=== PATIENT | female | born 1950 | race Caucasian/White ===

== ENCOUNTER → 2017-11-21 | Outpatient (CLI) | payer MEDICARE, OTHER ==
[~2017-11-21] MED LIST: AMBIEN 10 MG TA10 MG PO; BACTRIM 400-801 EACH; CELEXA40 MG PO; CENTRUM SILVER1 EAC1 PO; CIPRO500 MG PO; CLONAZEPAM 1 MG1 M1 PO; CRESTOR10 MG PO; CRESTOR20 MG PO; CYMBALTA30 MG PO; Calcium Carbonate PO; D3 DOTS2000 UNIT PO; ESTRACE0.5 MG PO; FENTANYL PATCH75 MCG TOP; FLAGYL500 MG PO; GLYCOLAX POWDER17 G1 PO; HYDROCODON-ACE1 EAC7 PO; IBUPROFEN 800800 M1 PO; LEVAQUIN 500 M500 MG PO; LINZESS72 MCG PO; LISINOPRIL10 MG PO; LISINOPRIL20 MG PO; LYRICA 75 MG CA75 MG PO; NORVASC10 MG PO; OMEPRAZOLE40 MG PO; ONDANSETRON HCL4 M2 PO; OS-CAL 500+D31 EAC1 PO; PERCOCET 7.5-31 EACH PO; PROLIA60 MG/1 ML IM; PROVENTIL HFA6.7 G1 INH; RANITIDINE HCL300 M1 PO; SEROQUEL 25 MG25 M1; SIMVASTATIN40 MG; SYNTHROID100 MCG PO; UNICOMPLEX M TA1 TA1 PO; VICODIN ES 7.51 EACH PO; ZANTAC 150MG T150 MG PO
== END ==
LOC: M.RAD 11-05 16:58 → M.CT 11-13 15:30 → M.RAD 11-13 15:30
DX: Z12.31 Encounter for screening mammogram for malignant neoplasm of breast (principal); J42 Unspecified chronic bronchitis; N28.1 Cyst of kidney, acquired; R91.8 Other nonspecific abnormal finding of lung field; I10 Essential (primary) hypertension; M81.0 Age-related osteoporosis without current pathological fracture; Z87.891 Personal history of nicotine dependence; Z88.9 Allergy status to unspecified drugs, medicaments and biological substances

== ENCOUNTER 2018-09-14 02:58 | Inpatient (IN) | payer MEDICARE, OTHER ==
[~2018-09-14] VITALS: Ht 165.1 cm; Wt 79.9 kg
[2018-09-14 03:11] VITALS: BP 95/56
[2018-09-14] MEDS ORDERED: CELEXA20 MG PO (03:27)
[2018-09-14 03:37] LABS: ABSOLUTE BASOPHILS 0.1 thou/uL (0.0-0.2); ABSOLUTE EOSINOPHILS 0.2 thou/uL (0.0-0.7); ABSOLUTE LYMPHOCYTES 2.1 thou/uL (0.8-5.3); ABSOLUTE MONOCYTES 0.6 thou/uL (0.0-1.2); ABSOLUTE NEUTROPHILS 6.4 thou/uL (1.6-8.1); BASOPHILS 0.6 %; EOSINOPHILS 2.4 %; HEMATOCRIT 36.8 % (37.0-47.0); HEMOGLOBIN 12.3 gm/dL (12.0-15.0); MCH 26.8 pg (26.0-34.0); MCHC 33.6 g/dL (28.0-37.0); MCV 79.9 fL (80.0-100.0); MONOCYTES 6.7 %; MPV 7.6 fl. (7.2-11.1); NUCLEATED RBCS 0 /100WBC; PLATELET COUNT* 361 thou/uL (150-400); POLYS 68.3 %; RDW-CV 16.9 % (10.5-14.5); WBC 9.4 thou/uL (4.0-11.0)
[2018-09-14 03:46] LABS: CALCIUM 8.6 mg/dL (8.5-10.1); CREATININE 1.5 mg/dL (0.6-1.3); POTASSIUM 3.4 mmol/L (3.5-5.1)
[2018-09-14 03:51] LABS: ALBUMIN 3.1 g/dL (3.4-5.0); TOTAL BILIRUBIN 0.6 mg/dL (<0.1-1.0); TOTAL PROTEIN 6.7 g/dL (6.4-8.2)
[2018-09-14 05:29] LABS: BE -0.9 mmol/L (-2 to +3); PCO2 47.4 mmHg (35.0-45.0); pH 7.343 (7.340-7.450)
[2018-09-14 06:01] LABS: URINE BILIRUBIN NEGATIVE (Negative); URINE BLOOD NEGATIVE (Negative); URINE CLARITY CLEAR; URINE COLOR YELLOW; URINE GLUCOSE-RANDOM NEGATIVE (Negative); URINE KETONES NEGATIVE (Negative); URINE LEUKOCYTES-REFLEX NEGATIVE (Negative); URINE NITRITE-REFLEX NEGATIVE (Negative); URINE PROTEIN NEGATIVE (Negative); URINE UROBILINOGEN 0.2 E.U./dl (0.2-1.0)
[2018-09-14 10:00] VITALS: BP 90/53
[2018-09-14 12:00] VITALS: BP 88/57
--- NOTE | 2018-09-14 12:47 | EKG ---
[place] [address] ELECTROCARDIOGRAM REPORT Name: DEEMTRIS CH Room: [place] [address] ADM IN M.R.#: [id number] Admission: 09/14/18 Attend Phys: Koko Valdovinos Discharge: Date of : 50 Report #: [id number] THIS REPORT FOR: //name// 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: AYLEEN : 1950 Requested By: Mercedes Luu Order Number: [id number] Collins MD: Ezekiel Benitez Measurements Intervals [place] Rate: 109 P: 51 MD: 125 QRS: 56 QRSD: 111 T: 14 QT: 363 QTc: 489 Interpretive Statements Sinus tachycardia Low voltage, precordial leads Borderline T abnormalities, inferior leads Artifact in lead(s) III,aVL,aVF,V1,V2,V3,V4,V5,V6 and baseline wander in lead(s) V3 Compared to ECG 03/16/2017 16:41:48 T-wave abnormality now present Electronically Signed On 09-14-2018 12:47:40 CDT by Ezekiel Benitez [email or web address] <ELECTRONICALLY SIGNED> By: Ezekiel Benitez MD, [facility] 09/14/18 1247 1 034 Ezekiel Benitez MD, [facility] /EPI
--- NOTE | 2018-09-14 12:48 | EKG ---
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 : 1950 Requested By: Mercedes Luu Order Number: [id number] Collins MD: Ezekiel Benitez Measurements Intervals [place] Rate: 133 P: 13 [place]: 134 QRS: 7 QRSD: 163 T: -5 QT: 336 QTc: 500 Interpretive Statements Sinus tachycardia Probable left atrial enlargement Nonspecific intraventricular conduction delay Artifact in lead(s) III,aVL,aVF,V1,V2,V3,V4,V5,V6 Compared to ECG 03/16/2017 16:41:48 Intraventricular conduction delay now present Electronically Signed On 09-14-2018 12:48:04 CDT by Ezekiel Benitez [email or web address] <ELECTRONICALLY SIGNED> By: Ezekiel Benitez MD, FAC 09/14/18 1248 0344 0344 Ezekiel Benitez MD, FAC /EPI
--- NOTE | 2018-09-14 12:48 | EKG ---
[place] [address] ELECTROCARDIOGRAM REPORT Name: DIMADEMETRIS Room: [place] [address] ADM IN .R.#: [id number] Admission: 09/14/18 Attend Phys: Koko Valdovinos Discharge: Date of : 50 Report #: [id number] THIS REPORT FOR: //name// [facility] ED Test Date: 2018-09-14 Test Time: 04:09:29 Pat Name: DEMETRIS CH Department: Room: [facility] Gender: F Otolaryngology Nurse: AYLEEN : 1950 Requested By: Mercedes Luu Order Number: [id number] MD: Ezekiel Benitez Measurements Intervals [place] Rate: 106 P: 56 [place]: 137 QRS: 51 QRSD: 98 T: 18 QT: 357 QTc: 475 Interpretive Statements Sinus tachycardia Low voltage, precordial leads Compared to ECG 03/16/2017 16:41:48 No significant changes Electronically Signed On 09-14-2018 12:48:12 CDT by Ezekiel Benitez [email or web address] <ELECTRONICALLY SIGNED> By: Ezekiel Benitez MD, [facility] 09/14/18 1248 0409 0409 Ezekiel Benitez MD, [facility] /EPI
[2018-09-14 14:04] LABS: BE 2.5 mmol/L (-2 to +3); PCO2 49.1 mmHg (35.0-45.0); PO2 73.7 mmHg (75.0-100.0); pH 7.378 (7.340-7.450)
[2018-09-14 14:40] VITALS: BP 92/58
[2018-09-14 15:00] VITALS: BP 99/55
[2018-09-14 20:00] VITALS: BP 99/61
[2018-09-14] MEDS ORDERED: AMBIEN 5 MG TABL5 M1 PO (20:21)
[2018-09-15] VITALS: BP 97/54
[2018-09-15 04:00] VITALS: BP 99/54
[2018-09-15 05:11] LABS: PO2 110.8 mmHg (75.0-100.0); pH 7.402 (7.340-7.450)
[2018-09-15 05:16] LABS: PCO2 50.4 mmHg (35.0-45.0)
[2018-09-15 05:40] LABS: CALCIUM 8.6 mg/dL (8.5-10.1); CREATININE 0.9 mg/dL (0.6-1.3)
[2018-09-15 05:43] LABS: ABSOLUTE LYMPHOCYTES 1.5 thou/uL (0.8-5.3); ABSOLUTE MONOCYTES 0.6 thou/uL (0.0-1.2); ABSOLUTE NEUTROPHILS 10.3 thou/uL (1.6-8.1); BASOPHILS 0.1 %; HEMATOCRIT 31.9 % (37.0-47.0); HEMOGLOBIN 10.4 gm/dL (12.0-15.0); LYMPHOCYTES 12.2 %; MCH 25.8 pg (26.0-34.0); MCHC 32.5 g/dL (28.0-37.0); MCV 79.3 fL (80.0-100.0); MONOCYTES 4.5 %; MPV 8.6 fl. (7.2-11.1); NUCLEATED RBCS 0 /100WBC; PLATELET COUNT* 303 thou/uL (150-400); POLYS 83.2 %; RBC 4.02 mil/uL (4.20-5.00); RDW-CV 16.5 % (10.5-14.5); WBC 12.4 thou/uL (4.0-11.0)
[2018-09-15 08:00] VITALS: BP 107/73
[2018-09-15 12:16] VITALS: BP 86/46
[2018-09-15 16:00] VITALS: BP 85/48
[2018-09-15 20:00] VITALS: BP 96/53
[2018-09-16] VITALS: BP 97/56
[2018-09-16 04:00] VITALS: BP 96/56
[2018-09-16 05:38] LABS: CALCIUM 8.7 mg/dL (8.5-10.1); POTASSIUM 4.2 mmol/L (3.5-5.1)
[2018-09-16 05:40] LABS: ABSOLUTE EOSINOPHILS 0.3 thou/uL (0.0-0.7); ABSOLUTE LYMPHOCYTES 3.1 thou/uL (0.8-5.3); ABSOLUTE MONOCYTES 0.9 thou/uL (0.0-1.2); ABSOLUTE NEUTROPHILS 6.6 thou/uL (1.6-8.1); BASOPHILS 0.2 %; EOSINOPHILS 2.9 %; HEMATOCRIT 30.7 % (37.0-47.0); HEMOGLOBIN 10.3 gm/dL (12.0-15.0); LYMPHOCYTES 28.1 %; MCH 26.9 pg (26.0-34.0); MCHC 33.6 g/dL (28.0-37.0); MCV 80.2 fL (80.0-100.0); MPV 8.3 fl. (7.2-11.1); NUCLEATED RBCS 0 /100WBC; PLATELET COUNT* 305 thou/uL (150-400); POLYS 60.8 %; RBC 3.83 mil/uL (4.20-5.00); RDW-CV 17.1 % (10.5-14.5); WBC 10.9 thou/uL (4.0-11.0)
[2018-09-16 08:00] VITALS: BP 89/52
[2018-09-16 11:48] VITALS: BP 89/54
[2018-09-16 16:10] VITALS: BP 102/54
[2018-09-16 18:45] LABS: HEMATOCRIT 37.8 % (37.0-47.0); HEMOGLOBIN 12.1 gm/dL (12.0-15.0); MCH 26.1 pg (26.0-34.0); MCV 81.8 fL (80.0-100.0); MPV 8.2 fl. (7.2-11.1); RBC 4.62 mil/uL (4.20-5.00); RDW-CV 17.3 % (10.5-14.5); WBC 11.7 thou/uL (4.0-11.0)
[2018-09-16 18:58] LABS: INR 0.9; PROTIME 9.6 Seconds (9.20-11.50)
[2018-09-16 20:00] VITALS: BP 104/62
[2018-09-17] VITALS (8 sets, daily range): BP systolic 93–126; BP diastolic 55–70
[2018-09-18] VITALS: BP 113/65
[2018-09-18 04:00] VITALS: BP 115/69
[2018-09-18 08:05] VITALS: BP 109/55
[2018-09-18 14:22] VITALS: BP 109/55
[2018-09-18 15:32] VITALS: BP 88/55
--- NOTE | 2018-09-18 17:13 | 2DMMODE ---
[place] [address] 2 D/M-MODE ECHOCARDIOGRAM Name: ZEYNEP CHRAJNI CABEZAS Room: [address] ADM IN [facility]#: [id number] Admission: 09/14/18 Attend Phys: Nasreen Bradshaw Discharge: Date of : 50 Date of Service: 09/18/18 1713 Report #: [id number] THIS REPORT FOR: //name// APPROVED REPORT Study performed: 09/18/2018 16:00:27 EXAM: Comprehensive 2D, Doppler, and color-flow Echocardiogram Patient Location: In-Patient Room #: [facility] Status: routine BSA: 1.87 HR: 91 bpm BP: 88/55 mmHg Rhythm: NSR Other Information Study Quality: Good Indications hypoxia 2D Dimensions IVSd: 7.46 (7-11mm) LVOT Diam: 19.14 (18-24mm) LVDd: 40.05 mm PWd: 8.31 (7-11mm) Ascending Ao: 31.02 (22-36mm) LVDs: 16.25 (25-40mm) Aortic Root: 33.16 mm Volumes Left Atrial Volume (Systole) LA ESV Index: 15.30 mL/m2 Aortic Valve AoV Peak Partha.: 1.09 m/s AO Peak Gr.: 4.73 mmHg LVOT Max P.67 mmHg AO Mean Gr.: 2.69 mmHg LVOT Mean P.75 mmHg LVOT Max V: 0.96 m/s AO V2 VTI: 22.35 cm LVOT Mean V: 0.61 m/s GAURI (VTI): 2.21 cm2 LVOT V1 VTI: 17.15 cm Mitral Valve E/A Ratio: 1.04 MV Decel. Time: 232.06 ms MV E Max Partha.: 0.79 m/[place] [address] 2 D/M-MODE ECHOCARDIOGRAM Name: DEMETRIS CH Room: [address] IN [facility]#: [id number] Admission: 09/14/18 Attend Phys: Nasreen Bradshaw Discharge: Date of : 50 Date of Service: 09/18/18 1713 Report #: [id number] MV PHT: 67.30 ms MVA (PHT): 3.27 cm2 TDI E/Lateral E': 6.08 E/Medial E': 7.90 Medial E' Partha.: 0.10 m/s Lateral E' Partha.: 0.13 m/s Pulmonary Valve PV Peak Partha.: 0.85 m/s PV Peak Gr.: 2.87 mmHg Tricuspid Valve RAP Estimate: 5.00 mmHg TR Peak Gr.: 26.86 mmHg RVSP: 31.00 mmHg PA Pressure: 31.00 mmHg Left Ventricle The left ventricle is normal size. There is normal LV segmental wall motion. There is normal left ventricular wall thickness. Left ventricular systolic function is normal. LVEF is 60-65%. Transmitral Doppler flow pattern suggests impaired LV relaxation. Right Ventricle The right ventricle is normal size. The right ventricular systolic function is normal. Atria The left atrium size is normal. The right atrium size is normal. Aortic Valve The aortic valve is normal in structure. No aortic regurgitation is present. There is no aortic valvular stenosis. Mitral Valve The mitral valve is normal in structure. There is no mitral valve regurgitation noted. No evidence of mitral valve stenosis. Tricuspid Valve The tricuspid valve is normal in structure. No pulmonary hypertension. Trace tricuspid regurgitation. Pulmonic Valve The pulmonary valve is normal in structure. There is no pulmonic [place] [address] 2 D/M-MODE ECHOCARDIOGRAM Name: DEMETRIS CH JOCELYNN Room: [address] IN [facility]#: [id number] Admission: 09/14/18 Attend Phys: Nasreen Bradshaw Discharge: Date of : 50 Date of Service: 09/18/18 1713 Report #: [id number] Great Vessels The aortic root is normal in size. IVC is normal in size and collapses >50% with inspiration. Pericardium There is no pericardial effusion. <Conclusion> The left ventricle is normal size. There is normal left ventricular wall thickness. Left ventricular systolic function is normal. LVEF is 60-65%. Transmitral Doppler flow pattern suggests impaired LV relaxation. The tricuspid valve is normal in structure. No pulmonary hypertension. IVC is normal in size and collapses >50% with inspiration. <ELECTRONICALLY SIGNED> By: Jerman Christensen MD, FACC 09/18/18 171 12 171 Jerman Christensen MD, FACC /INF
[2018-09-18 21:00] VITALS: BP 98/63
[2018-09-19 00:19] VITALS: BP 96/61
[2018-09-19 04:00] VITALS: BP 95/60
[2018-09-19 07:40] VITALS: BP 97/54
[2018-09-19 17:10] VITALS: BP 81/50
[2018-09-19 20:00] VITALS: BP 90/55
[2018-09-20] VITALS: BP 112/51
[2018-09-20 04:00] VITALS: BP 90/53
[2018-09-20 07:30] VITALS: BP 110/70
[2018-09-20 16:42] VITALS: BP 97/55
[2018-09-20 20:00] VITALS: BP 97/63
[2018-09-21 09:40] VITALS: BP 104/59
--- NOTE | 2018-09-21 10:49 | CON ---
[address] [address] CONSULTATION Name: DIMADEMETRIS Room: [address] ADM IN M.R.#: [id number] Admission: 09/14/18 Attend Phys: Koko Valdovinos Discharge: Date of : 50 Report #: [id number] THIS REPORT FOR: //name// CC: Nasreen Burns DATE OF SERVICE: 09/20/2018 NEW PATIENT EVALUATION REASON FOR EVALUATION: Hypoxemia. COPD. HISTORY OF PRESENT ILLNESS: The patient is a 68-year-old old woman who was admitted on 09/14/2018 complaining of a fall on 09/13/2018. She fell backwards, landing on her lower back. She denies loss of consciousness or altered mental status. However, she had back pain and chest pain in the rib area and associated traumatic rib fractures and compression fracture in T4. She had initially chest CT done on 09/14/2018, which showed emphysematous changes, coronary artery calcification and hiatal hernia. The patient, at baseline, has COPD. She is using albuterol as needed. She denies wheezing or cough; however, has shortness of breath on exertion. Workup included V/Q scan, which was done on 09/14/2018, was low probability. Venous Dopplers were clear. She had a chest CT on 09/18/2018, which I personally reviewed. It showed diffuse emphysema. She has left upper lobe patchy infiltrate, suspected scarring. Also, she has minimal effusion with small right lower lobe infiltrate versus atelectasis. PAST MEDICAL HISTORY: Including COPD per history, rib fracture. Back pain and compression fracture of T9 in the past. Hyperlipidemia, neuropathy, arthritis, depression and osteoporosis. ALLERGIES: NOTED. PAST SURGICAL HISTORY: Surgical hysterectomy, tonsillectomy and adenoidectomy. HOME MEDICATIONS: Reviewed. FAMILY HISTORY: Noncontributory. SOCIAL HISTORY: Continues to smoke, has 79-pyrs-psmg smoking. REVIEW OF SYSTEMS: A 14-point review of systems as above. [place] [address] CONSULTATION Name: DIMADEMETRIS Room: [address] IN [facility]#: [id number] Admission: 09/14/18 Attend Phys: Koko Valdovinos Discharge: Date of : 50 Report #: [id number] joint pain, has exertional shortness of breath, has neuropathy. Recent fall. PHYSICAL EXAMINATION: GENERAL: On examination, the patient not in distress. VITAL SIGNS: Pulse is 90, blood pressure 110/70, pulse oximetry was 94% on 4 liters. She is afebrile at 36.4. HEAD AND NECK: Neck is supple. Oral mucosa clear. CHEST: Diffusely decreased breath sounds. She has some kyphosis. CARDIOVASCULAR: Regular rate and rhythm. ABDOMEN: Soft, nontender. EXTREMITIES: No edema. NEUROLOGIC: No focal deficits. PSYCHIATRIC: Anxious. LABORATORY AND OTHER DATABASE: White blood cell count 11.7, hemoglobin 12 and platelets 375,000. Arterial blood gas from 09/15/2018, pH of 7.4, pCO2 of 50 and pO2 110. ASSESSMENT AND PLAN: 1. Acute respiratory failure, the patient post fall. She has rib fracture. She has associated atelectasis. At this time, recommend to continue incentive spirometry, which she continues to do. I suspect that her COPD is severe and likely may need home O2. Hypoxemia worse with atelectasis, cannot exclude pneumonia. We will recommend to treat her with Levaquin course. 2. Chronic obstructive pulmonary disease. Extensive emphysema on chest CT reviewed and she has chronic hypercapnia. Suspect her COPD is severe. We will need pulmonary function test. Recommend to add long-acting anticholinergic, similar to Spiriva and Incruse, as outpatient and recommend to follow up with Pulmonary, which the patient agrees with it. She needs to quit smoking too. 3. Chronic hypercapnia, has been stable, likely related to chronic obstructive pulmonary disease. As above, recommend follow up with Pulmonary. We will continue to follow up intermittently. This was discussed with the patient. Please do not hesitate to call with any questions. <ELECTRONICALLY SIGNED> By: Geovanni Watson MD 09/21/18 1049 1109 0105Ajoaquín Watson MD /nt
[2018-09-21 16:00] VITALS: BP 101/58
[2018-09-21 20:00] VITALS: BP 117/82
[2018-09-22 04:24] LABS: HEMATOCRIT 32.2 % (37.0-47.0); HEMOGLOBIN 10.7 gm/dL (12.0-15.0); MCH 26.7 pg (26.0-34.0); MCHC 33.2 g/dL (28.0-37.0); MCV 80.4 fL (80.0-100.0); MPV 7.7 fl. (7.2-11.1); RBC 4.01 mil/uL (4.20-5.00); RDW-CV 17.2 % (10.5-14.5); WBC 7.8 thou/uL (4.0-11.0)
[2018-09-22 04:41] LABS: CREATININE 1.2 mg/dL (0.6-1.3); POTASSIUM 4.8 mmol/L (3.5-5.1)
[2018-09-22 08:30] VITALS: BP 106/67
[2018-09-22 08:44] VITALS: BP 106/67
[2018-09-22] MEDS ORDERED: IPRAT-ALBUT 0.5-3 ML INH (11:29)
[2018-09-22] MEDS ORDERED: PULMICORT0.5 MG/22 INH (11:30)
[2018-09-22] MEDS ORDERED: PERCOCET 7.5-31 EACH PO (11:31)
[2018-09-22] MEDS ORDERED: LEVAQUIN 500 M500 M2 PO (11:33)
== END 2018-09-22 13:00 | disposition home or self-care (01) | DRG 515 ==
LOC: M.ERS 02:58 → M.2W 05:43 → M.TBA-ER 05:43 → M.2W 14:42 → M.ORTHSURG 09-17 18:15
PROVIDERS: Emergency Medicine; Family Medicine; Internal Medicine; ADMIT Internal Medicine
PROC: 0PU43JZ Supplement Thoracic Vertebra with Synthetic Substitute, Percutaneous Approach (ICD-10-PCS; principal; 2018-09-22)
DX: S22.079A Unspecified fracture of T9-T10 vertebra, initial encounter for closed fracture (principal); J96.01 Acute respiratory failure with hypoxia; J96.02 Acute respiratory failure with hypercapnia; S22.31XA Fracture of one rib, right side, initial encounter for closed fracture; N17.9 Acute kidney failure, unspecified; E44.1 Mild protein-calorie malnutrition; E87.1 Hypo-osmolality and hyponatremia; J98.11 Atelectasis; J43.2 Centrilobular emphysema; I25.10 Atherosclerotic heart disease of native coronary artery without angina pectoris; K44.9 Diaphragmatic hernia without obstruction or gangrene; I10 Essential (primary) hypertension; F32.9 Major depressive disorder, single episode, unspecified; M19.90 Unspecified osteoarthritis, unspecified site; G62.9 Polyneuropathy, unspecified; E78.00 Pure hypercholesterolemia, unspecified; M81.0 Age-related osteoporosis without current pathological fracture; F17.210 Nicotine dependence, cigarettes, uncomplicated; W18.39XA Other fall on same level, initial encounter; Y93.89 Activity, other specified; Y92.090 Kitchen in other non-institutional residence as the place of occurrence of the external cause; Y99.8 Other external cause status; Z90.710 Acquired absence of both cervix and uterus; Z85.3 Personal history of malignant neoplasm of breast; Z92.21 Personal history of antineoplastic chemotherapy; Z92.3 Personal history of irradiation; Z79.899 Other long term (current) drug therapy; Z88.1 Allergy status to other antibiotic agents; Z88.8 Allergy status to other drugs, medicaments and biological substances

== ENCOUNTER 2019-02-04 20:46 | Emergency (ER) | payer MEDICARE, OTHER ==
[~2019-02-04] VITALS: Ht 165.1 cm; Wt 62.1 kg
[~2019-02-04 20:46] MED LIST changes: +AMBIEN 5 MG TABL5 M1 PO; +CELEXA20 MG PO; +IPRAT-ALBUT 0.5-3 ML INH; +LEVAQUIN 500 M500 M2 PO; +PULMICORT0.5 MG/22 INH
[2019-02-04 22:11] VITALS: BP 122/74
== END 2019-02-04 22:12 | disposition home or self-care (01) ==
LOC: M.ERS 20:46
DX: S01.81XA Laceration without foreign body of other part of head, initial encounter (principal); I10 Essential (primary) hypertension; F32.9 Major depressive disorder, single episode, unspecified; M81.0 Age-related osteoporosis without current pathological fracture; M19.90 Unspecified osteoarthritis, unspecified site; E78.00 Pure hypercholesterolemia, unspecified; F17.210 Nicotine dependence, cigarettes, uncomplicated; Z88.8 Allergy status to other drugs, medicaments and biological substances; Z90.89 Acquired absence of other organs; Z90.710 Acquired absence of both cervix and uterus; W01.198A Fall on same level from slipping, tripping and stumbling with subsequent striking against other object, initial encounter; Y92.89 Other specified places as the place of occurrence of the external cause; Y93.89 Activity, other specified; Y99.8 Other external cause status

== ENCOUNTER 2019-03-26 17:11 | Inpatient (IN) | payer MEDICARE, OTHER ==
[~2019-03-26] VITALS: Ht 162.6 cm; Wt 68.5 kg
--- NOTE | ~2019-03-26 | PROC ---
[address] [place] [address] PROCEDURE REPORT Name: DEMETRIS CH Room: [address] IN M.R.#: [id number] Admission: 03/26/19 Attend Phys: Chinyere Camacho Discharge: 03/30/19 Date of : 50 Report #: [id number] THIS REPORT FOR: //name// For GI report, please see the Provation report in Perceptive 7 content. By: 0646Medical Records Staff ZARA /FLORI
[2019-03-26 17:12] VITALS: BP 97/54
[2019-03-26 17:42] LABS: HEMOGLOBIN 11.3 gm/dL (12.0-15.0)
[2019-03-26 17:43] LABS: HEMATOCRIT 34.2 % (37.0-47.0); MCH 26.7 pg (26.0-34.0); MCHC 33.2 g/dL (28.0-37.0); MCV 80.4 fL (80.0-100.0); MPV 7.6 fl. (7.2-11.1); NUCLEATED RBCS 0 /100WBC; PLATELET COUNT* 400 thou/uL (150-400); RBC 4.25 mil/uL (4.20-5.00); RDW-CV 17.2 % (10.5-14.5); WBC 16.3 thou/uL (4.0-11.0)
[2019-03-26 17:54] LABS: CALCIUM 8.3 mg/dL (8.5-10.1); CREATININE 1.5 mg/dL (0.6-1.3); POTASSIUM 3.7 mmol/L (3.5-5.1)
[2019-03-26 17:58] LABS: TOTAL BILIRUBIN 0.4 mg/dL (<0.1-1.0); TOTAL PROTEIN 6.7 g/dL (6.4-8.2)
[2019-03-26 18:16] LABS: ABSOLUTE BASOPHILS 0.2 thou/uL (0.0-0.2); ABSOLUTE LYMPHOCYTES 0.7 thou/uL (0.8-5.3); ABSOLUTE MONOCYTES 0.3 thou/uL (0.0-1.2); ABSOLUTE NEUTROPHILS 15.2 thou/uL (1.6-8.1)
[2019-03-26 18:18] LABS: ANISOCYTOSIS 1+; MICROCYTES Occasional; OVALOCYTES Occasional; PLATELET ESTIMATE ADEQUATE
[2019-03-26 19:45] VITALS: BP 98/53
[2019-03-26 20:46] VITALS: BP 95/65
[2019-03-26 21:21] LABS: HEMATOCRIT 27.3 % (37.0-47.0)
[2019-03-26 21:22] LABS: HEMOGLOBIN 9.3 gm/dL (12.0-15.0)
[2019-03-26 21:30] VITALS: BP 93/58
[2019-03-26 22:14] VITALS: BP 82/50
[2019-03-26 22:30] VITALS: BP 91/51
[2019-03-27] VITALS (20 sets, daily range): BP systolic 89–130; BP diastolic 43–66
[2019-03-27 04:40] LABS: HEMATOCRIT 27.3 % (37.0-47.0); HEMOGLOBIN 8.8 gm/dL (12.0-15.0); MCHC 32.2 g/dL (28.0-37.0); MCV 80.7 fL (80.0-100.0); MPV 8.1 fl. (7.2-11.1); RBC 3.38 mil/uL (4.20-5.00); RDW-CV 16.5 % (10.5-14.5); WBC 21.6 thou/uL (4.0-11.0)
[2019-03-27 04:53] LABS: CALCIUM 7.8 mg/dL (8.5-10.1); CREATININE 1.2 mg/dL (0.6-1.3); POTASSIUM 3.7 mmol/L (3.5-5.1)
[2019-03-27 05:30] LABS: PROTIME 10.7 Seconds (9.20-11.50)
--- NOTE | 2019-03-27 10:20 | EKG ---
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: : 1950 Requested By: Maximiliano Oliver Order Number: [id number] MD: Nacho Moreno Measurements Intervals [place] Rate: 125 P: 71 AL: 129 QRS: -8 QRSD: 103 T: 82 QT: 323 QTc: 466 Interpretive Statements Sinus tachycardia artifact noted Low voltage, extremity and precordial leads Compared to ECG 09/14/2018 04:09:29 No significant changes Electronically Signed On 03-27-2019 10:20:07 CHIEF LIBRARIAN CIRCULATION DEPARTMENT by Nacho Moreno [email or web address] <ELECTRONICALLY SIGNED> By: Nacho Moreno MD, [facility] 03/27/19 1020 1733 1733 Nacho Moreno MD, [facility] /EPI
[2019-03-27 12:12] LABS: ABSOLUTE LYMPHOCYTES 1.8 thou/uL (0.8-5.3); ABSOLUTE MONOCYTES 0.8 thou/uL (0.0-1.2); BASOPHILS 0.1 %; HEMATOCRIT 21.4 % (37.0-47.0); HEMOGLOBIN 7.2 gm/dL (12.0-15.0); LYMPHOCYTES 12.3 %; MCH 26.9 pg (26.0-34.0); MCHC 33.6 g/dL (28.0-37.0); MCV 79.9 fL (80.0-100.0); MONOCYTES 5.5 %; MPV 7.7 fl. (7.2-11.1); NUCLEATED RBCS 0 /100WBC; PLATELET COUNT* 266 thou/uL (150-400); POLYS 82.1 %; RBC 2.68 mil/uL (4.20-5.00); RDW-CV 16.8 % (10.5-14.5); WBC 14.6 thou/uL (4.0-11.0)
[2019-03-27 12:21] LABS: CALCIUM 7.6 mg/dL (8.5-10.1); CREATININE 1.1 mg/dL (0.6-1.3); POTASSIUM 3.1 mmol/L (3.5-5.1)
[2019-03-27 15:25] LABS: URINE BILIRUBIN NEGATIVE (Negative); URINE BLOOD NEGATIVE (Negative); URINE CLARITY CLEAR; URINE COLOR YELLOW; URINE GLUCOSE-RANDOM NEGATIVE (Negative); URINE KETONES NEGATIVE (Negative); URINE LEUKOCYTES-REFLEX NEGATIVE (Negative); URINE NITRITE-REFLEX NEGATIVE (Negative); URINE PROTEIN NEGATIVE (Negative); URINE UROBILINOGEN 0.2 E.U./dl (0.2-1.0)
[2019-03-28] VITALS (7 sets, daily range): BP systolic 113–138; BP diastolic 57–78
[2019-03-28 04:37] LABS: ABSOLUTE LYMPHOCYTES 1.9 thou/uL (0.8-5.3); ABSOLUTE MONOCYTES 0.8 thou/uL (0.0-1.2); ABSOLUTE NEUTROPHILS 5.1 thou/uL (1.6-8.1); BASOPHILS 0.5 %; EOSINOPHILS 0.3 %; LYMPHOCYTES 24.1 %; MCH 26.7 pg (26.0-34.0); MCHC 33.5 g/dL (28.0-37.0); MCV 79.8 fL (80.0-100.0); MONOCYTES 9.6 %; MPV 7.8 fl. (7.2-11.1); NUCLEATED RBCS 0 /100WBC; PLATELET COUNT* 229 thou/uL (150-400); POLYS 65.5 %; RBC 2.38 mil/uL (4.20-5.00); RDW-CV 16.8 % (10.5-14.5); WBC 7.8 thou/uL (4.0-11.0)
[2019-03-28 05:09] LABS: HEMOGLOBIN 6.4 gm/dL (12.0-15.0)
[2019-03-28 05:14] LABS: ALBUMIN 2.1 g/dL (3.4-5.0); CALCIUM 7.6 mg/dL (8.5-10.1); CREATININE 0.7 mg/dL (0.6-1.3); TOTAL BILIRUBIN 0.3 mg/dL (<0.1-1.0); TOTAL PROTEIN 4.8 g/dL (6.4-8.2)
[2019-03-28 05:20] LABS: POTASSIUM 2.8 mmol/L (3.5-5.1)
[2019-03-28 06:17] LABS: ESR (SEDRATE) 17 mm/hr (0-30)
[2019-03-28 13:34] LABS: HEMATOCRIT 25.2 % (37.0-47.0)
[2019-03-28 13:45] LABS: HEMOGLOBIN 8.7 gm/dL (12.0-15.0)
[2019-03-29] VITALS: BP 137/82
[2019-03-29 04:00] VITALS: BP 123/75
[2019-03-29 04:50] LABS: ABSOLUTE EOSINOPHILS 0.1 thou/uL (0.0-0.7); ABSOLUTE LYMPHOCYTES 2.1 thou/uL (0.8-5.3); ABSOLUTE MONOCYTES 0.7 thou/uL (0.0-1.2); BASOPHILS 0.3 %; HEMATOCRIT 23.2 % (37.0-47.0); HEMOGLOBIN 7.9 gm/dL (12.0-15.0); LYMPHOCYTES 35.9 %; MCH 28.1 pg (26.0-34.0); MCHC 34.2 g/dL (28.0-37.0); MCV 82.2 fL (80.0-100.0); MONOCYTES 11.2 %; MPV 7.2 fl. (7.2-11.1); NUCLEATED RBCS 0 /100WBC; PLATELET COUNT* 214 thou/uL (150-400); POLYS 51.6 %; RBC 2.83 mil/uL (4.20-5.00); RDW-CV 17.1 % (10.5-14.5); WBC 5.9 thou/uL (4.0-11.0)
[2019-03-29 05:02] LABS: CALCIUM 7.7 mg/dL (8.5-10.1); CREATININE 0.7 mg/dL (0.6-1.3); MAGNESIUM 1.2 mg/dL (1.8-2.4); POTASSIUM 3.8 mmol/L (3.5-5.1); TOTAL BILIRUBIN 0.6 mg/dL (<0.1-1.0); TOTAL PROTEIN 4.7 g/dL (6.4-8.2)
[2019-03-29 08:00] VITALS: BP 130/79
[2019-03-29 12:00] VITALS: BP 153/44
[2019-03-29 16:00] VITALS: BP 119/77
[2019-03-29 21:00] VITALS: BP 122/75
[2019-03-30 06:00] LABS: ABSOLUTE BASOPHILS 0.1 thou/uL (0.0-0.2); ABSOLUTE EOSINOPHILS 0.1 thou/uL (0.0-0.7); ABSOLUTE LYMPHOCYTES 3.3 thou/uL (0.8-5.3); ABSOLUTE MONOCYTES 0.6 thou/uL (0.0-1.2); ABSOLUTE NEUTROPHILS 6.3 thou/uL (1.6-8.1); BASOPHILS 0.7 %; EOSINOPHILS 1.4 %; HEMATOCRIT 26.8 % (37.0-47.0); HEMOGLOBIN 9.1 gm/dL (12.0-15.0); LYMPHOCYTES 31.7 %; MCH 28.1 pg (26.0-34.0); MCHC 34.1 g/dL (28.0-37.0); MCV 82.5 fL (80.0-100.0); MONOCYTES 5.9 %; MPV 6.9 fl. (7.2-11.1); NUCLEATED RBCS 0 /100WBC; POLYS 60.3 %; RBC 3.25 mil/uL (4.20-5.00); WBC 10.5 thou/uL (4.0-11.0)
[2019-03-30 06:05] LABS: PLATELET COUNT* 315 thou/uL (150-400)
[2019-03-30 06:11] LABS: ALBUMIN 2.3 g/dL (3.4-5.0); CALCIUM 8.6 mg/dL (8.5-10.1); CREATININE 0.8 mg/dL (0.6-1.3); MAGNESIUM 1.6 mg/dL (1.8-2.4); POTASSIUM 3.3 mmol/L (3.5-5.1); TOTAL BILIRUBIN 0.5 mg/dL (<0.1-1.0); TOTAL PROTEIN 5.4 g/dL (6.4-8.2)
[2019-03-30 09:20] VITALS: BP 143/87
[2019-03-30] MEDS ORDERED: LEVAQUIN 500 M500 M3 PO (14:00)
[2019-03-30 14:02] VITALS: BP 143/87
[2019-03-30 14:46] VITALS: BP 143/87
--- NOTE | 2019-04-02 16:35 | CON ---
[facility] [address] [place] [address] CONSULTATION Name: DIMADEMETRISTRENT CABEZAS Room: [address] IN M.R.#: [id number] Admission: 03/26/19 Attend Phys: Chinyere Camacho Discharge: 03/30/19 Date of : 50 Report #: [id number] THIS REPORT FOR: //name// CC: Josef Acuna DO DATE OF SERVICE: 03/27/2019 REFERRING PHYSICIAN: Jonathan Acuna DO REASONS FOR CONSULTATION: Recurrent nausea and vomiting with hematemesis. IMPRESSION: 1. Recurrent nausea and vomiting with hematemesis; evaluate for reflux esophagitis versus other cause. 2. Dilated small bowel loops, suggestive of possible small bowel obstruction, which may be likely related to adhesions. 3. Personal history of breast cancer, previous lumpectomy in the remote past. RECOMMENDATIONS: 1. The patient appears to be hemodynamically stable to undergo endoscopic evaluation. We will proceed with upper endoscopy and depending on what we find at the same time, we will replace her nasogastric tube. I have discussed the plans with the patient as well and she is agreeable to the same. 2. We will wait for surgical consultation as well and hopefully, she can be treated conservatively for partial small bowel obstruction. HISTORY OF PRESENT ILLNESS: The patient is a very pleasant 68-year-old white female with history of peptic ulcer disease in the past, who presented to the hospital with complaints of rather severe abdominal pain, nausea, vomiting, fever, chills, and that she had coffee-ground emesis. She was not able to eat much of anything and felt that she needed to come to the hospital. She currently takes just yrgb-uhw-cmgmolg omeprazole for reflux issues. She has a prior history of problems related to ulcer issue and colitis in the past. She is admitted to the hospital for further evaluation and treatment. ALLERGIES: ABILIFY, LIPITOR, AND NEURONTIN. MEDICATIONS: Current medications at home include omeprazole, lisinopril, vitamin D3, rosuvastatin, and pregabalin. She is on fentanyl Duragesic patch for chronic back pain, clonazepam, amlodipine, multivitamin with iron, oxycodone, citalopram, zolpidem, ipratropium bromide with albuterol inhalers, Pulmicort, and Levaquin. PAST MEDICAL/SURGICAL HISTORY: Underlying hypertension [place] [address] CONSULTATION Name: DEMETRIS CH JOCELYNN Room: [address]#: [id number] Admission: 03/26/19 Attend Phys: Chinyere Camacho Discharge: 03/30/19 Date of : 50 Report #: [id number] has had chronic low back pain. She had previous compression fractures. She has chronic back pain requiring chronic pain medications. She has history of previous hysterectomy, tonsillectomy, and breast lumpectomy. She had chemo and radiation in 2003. She has degenerative disk disease and compression fracture as mentioned above. SOCIAL HISTORY: The patient smokes about half pack per day; does not drink alcohol. FAMILY HISTORY: Remarkable for heart disease and hepatitis C in her sister. PHYSICAL EXAMINATION: GENERAL: Revealed a 68-year-old frail white female, who is awake and alert. CARDIOPULMONARY: Revealed a tachycardic rate and rhythm. LUNGS: Clear. ABDOMEN: Soft and nondistended. No rebound or guarding was noted. LABORATORY DATA: Laboratory tests revealed a white count of 14.6, hemoglobin 7.2, platelet count 266,000, MCV is 79.9, and RDW 16.8. On admission, she was dry and hemoglobin was 11.3. Her sodium was 135, potassium 3.1, chloride 99, and bicarbonate 30. Her BUN was 32 and creatinine 1.1. By comparison on the , her BUN was 32, creatinine 1.5, and her GFR of only 35. Her total bilirubin at that time was 0.4, alkaline phosphatase 69, AST 15, ALT 13, and albumin 3.0. IMAGING: CT scan of the abdomen and pelvis performed on 03/26 revealed severe emphysema in the lung bases. She has a normal-appearing liver. Gallbladder is normal without ductal dilation. Pancreas appears unremarkable. Spleen, adrenals, and kidneys all looked normal. Her distal esophagus and stomach are both fluid filled as well as the proximal and mid small bowel, which are also distended with fluid compatible with a zsy-wu-gjegxo small bowel obstruction. Her distal small bowel was decompressed. Colon revealed normal-caliber stools without wall thickness. DISCUSSION: At the present time, the patient has had some problems with recurrent nausea, vomiting, coffee-ground emesis, and has a partial small bowel obstruction. We will proceed with upper endoscopy and make further recommendations thereafter. I have discussed the plans with the patient as well as her and they are agreeable to the same. <ELECTRONICALLY SIGNED> By: Phillip Kimbrough DO 04/02/19 1635 0332 0434Phillip Kimbrough DO /nt
== END 2019-03-30 14:30 | disposition home or self-care (01) | DRG 380 ==
LOC: M.ERS 17:11 → M.2W 18:27 → M.TBA-ER 18:27 → M.ICU 19:11 → M.2W 03-27 17:04 → M.3W 03-29 15:42
PROVIDERS: Emergency Medicine Emergency Medical Services; Internal Medicine Gastroenterology; ADMIT Internal Medicine
PROC: 0D9680Z Drainage of Stomach with Drainage Device, Via Natural or Artificial Opening Endoscopic (ICD-10-PCS; principal; 2019-03-27)
PROC: 0DB58ZX Excision of Esophagus, Via Natural or Artificial Opening Endoscopic, Diagnostic (ICD-10-PCS; 2019-03-27)
PROC: 30233N1 Transfusion of Nonautologous Red Blood Cells into Peripheral Vein, Percutaneous Approach (ICD-10-PCS; 2019-03-28)
DX: K22.11 Ulcer of esophagus with bleeding (principal); R65.11 Systemic inflammatory response syndrome (SIRS) of non-infectious origin with acute organ dysfunction; K56.609 Unspecified intestinal obstruction, unspecified as to partial versus complete obstruction; N17.9 Acute kidney failure, unspecified; D62 Acute posthemorrhagic anemia; I10 Essential (primary) hypertension; F32.9 Major depressive disorder, single episode, unspecified; M19.90 Unspecified osteoarthritis, unspecified site; G62.9 Polyneuropathy, unspecified; E78.00 Pure hypercholesterolemia, unspecified; M81.0 Age-related osteoporosis without current pathological fracture; E87.6 Hypokalemia; E83.42 Hypomagnesemia; K44.9 Diaphragmatic hernia without obstruction or gangrene; K21.0 Gastro-esophageal reflux disease with esophagitis; Z90.710 Acquired absence of both cervix and uterus; Z85.3 Personal history of malignant neoplasm of breast; Z88.8 Allergy status to other drugs, medicaments and biological substances; Z82.49 Family history of ischemic heart disease and other diseases of the circulatory system

== ENCOUNTER 2019-06-21 10:15 | Emergency (ER) | payer MEDICARE, OTHER ==
[~2019-06-21] VITALS: Ht 160 cm; Wt 59.0 kg
[~2019-06-21 10:15] MED LIST changes: +LEVAQUIN 500 M500 M3 PO
[2019-06-21] MEDS ORDERED: NORCO 10-325 T1 EACH PO (10:25)
[2019-06-21 10:58] LABS: HEMATOCRIT 29.1 % (37.0-47.0); HEMOGLOBIN 9.8 gm/dL (12.0-15.0); MCH 25.2 pg (26.0-34.0); MCHC 33.7 g/dL (28.0-37.0); MPV 7.1 fl. (7.2-11.1); RBC 3.88 mil/uL (4.20-5.00); RDW-CV 17.3 % (10.5-14.5); WBC 7.8 thou/uL (4.0-11.0)
[2019-06-21 11:08] LABS: CALCIUM 8.4 mg/dL (8.5-10.1); CREATININE 0.9 mg/dL (0.6-1.3); POTASSIUM 3.8 mmol/L (3.5-5.1)
[2019-06-21 11:12] LABS: ALBUMIN 2.6 g/dL (3.4-5.0); TOTAL BILIRUBIN 0.2 mg/dL (<0.1-1.0); TOTAL PROTEIN 6.2 g/dL (6.4-8.2)
[2019-06-21] MEDS ORDERED: NORCO 5-325 TA1 EAC1 PO (12:16)
[2019-06-21 12:30] VITALS: BP 100/43
--- NOTE | 2019-06-21 15:30 | EKG ---
[place] [address] ELECTROCARDIOGRAM REPORT Name: NAHOMI CHTRENT [facility]AS [id number] Admission: 06/21/19 Attend Phys: Discharge: 06/21/19 Date of : 50 Date of Service: 06/21/19 1043 Report #: [id number] THIS REPORT FOR: //name// 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 : 1950 Requested By: Maximiliano Oliver Order Number: [id number] MD: Nacho Moreno Measurements Intervals [place] Rate: 89 P: 61 IN: 149 QRS: 40 QRSD: 89 T: 31 QT: 373 QTc: 454 Interpretive Statements Sinus rhythm Low voltage, extremity and precordial leads Compared to ECG 03/26/2019 17:33:24 Sinus tachycardia no longer present Electronically Signed On 06-21-2019 15:29:27 MASTER AUTOMOTIVE TECHNICIAN by Nacho Moreno [email or web address] <ELECTRONICALLY SIGNED> By: Nacho Moreno MD, [facility] 06/21/19 1529 1043 1043 Nacho Moreno MD, [facility] /EPI
== END 2019-06-21 12:35 | disposition home or self-care (01) ==
LOC: M.ERS 10:15
PROVIDERS: Emergency Medicine Emergency Medical Services
DX: S22.068A Other fracture of T7-T8 thoracic vertebra, initial encounter for closed fracture (principal); I10 Essential (primary) hypertension; M19.90 Unspecified osteoarthritis, unspecified site; W18.39XA Other fall on same level, initial encounter; Y92.009 Unspecified place in unspecified non-institutional (private) residence as the place of occurrence of the external cause; Y93.01 Activity, walking, marching and hiking; Y99.8 Other external cause status

== ENCOUNTER 2019-08-21 18:22 | Emergency (ER) | payer MEDICARE, OTHER ==
[~2019-08-21] VITALS: Ht 162.6 cm; Wt 59.0 kg
[~2019-08-21 18:22] MED LIST changes: +NORCO 10-325 T1 EACH PO; +NORCO 5-325 TA1 EAC1 PO
[2019-08-21 20:40] VITALS: BP 110/69
== END 2019-08-21 20:40 | disposition home or self-care (01) ==
LOC: M.ERS 18:22
DX: S00.03XA Contusion of scalp, initial encounter (principal); M79.604 Pain in right leg; I10 Essential (primary) hypertension; E78.00 Pure hypercholesterolemia, unspecified; M19.90 Unspecified osteoarthritis, unspecified site; M81.0 Age-related osteoporosis without current pathological fracture; F32.9 Major depressive disorder, single episode, unspecified; F17.210 Nicotine dependence, cigarettes, uncomplicated; Z90.710 Acquired absence of both cervix and uterus; Z90.49 Acquired absence of other specified parts of digestive tract; Z88.8 Allergy status to other drugs, medicaments and biological substances; W18.39XA Other fall on same level, initial encounter; Y93.89 Activity, other specified; Y92.89 Other specified places as the place of occurrence of the external cause; Y99.8 Other external cause status

== ENCOUNTER 2019-08-24 13:33 | Inpatient (IN) | payer MEDICARE, OTHER ==
[~2019-08-24] VITALS: Ht 162.6 cm; Wt 63.3 kg
[2019-08-24 13:42] VITALS: BP 134/84
[2019-08-24 15:28] LABS: HEMATOCRIT 29.8 % (37.0-47.0); HEMOGLOBIN 9.9 gm/dL (12.0-15.0); MCH 24.1 pg (26.0-34.0); MCHC 33.3 g/dL (28.0-37.0); MCV 72.4 fL (80.0-100.0); MPV 7.2 fl. (7.2-11.1); NUCLEATED RBCS 0 /100WBC; PLATELET COUNT* 333 thou/uL (150-400); RBC 4.12 mil/uL (4.20-5.00); RDW-CV 19.4 % (10.5-14.5); WBC 11.1 thou/uL (4.0-11.0)
[2019-08-24 15:36] LABS: CALCIUM 8.9 mg/dL (8.5-10.1); CREATININE 0.9 mg/dL (0.6-1.3)
[2019-08-24 15:37] LABS: PROTIME 10.6 Seconds (9.20-11.50)
[2019-08-24 15:41] LABS: ALBUMIN 2.9 g/dL (3.4-5.0); TOTAL BILIRUBIN 0.6 mg/dL (<0.1-1.0); TOTAL PROTEIN 6.5 g/dL (6.4-8.2)
[2019-08-24 15:44] VITALS: BP 124/75
[2019-08-24 16:32] LABS: ABSOLUTE LYMPHOCYTES 1.4 thou/uL (0.8-5.3); ABSOLUTE MONOCYTES 0.3 thou/uL (0.0-1.2); ABSOLUTE NEUTROPHILS 9.3 thou/uL (1.6-8.1); OVALOCYTES 1+
[2019-08-24 16:33] LABS: MICROCYTES 1+; PLATELET ESTIMATE ADEQUATE
[2019-08-24 16:34] LABS: ANISOCYTOSIS 1+; HYPOCHROMASIA 1+
[2019-08-24 20:00] VITALS: BP 121/73
[2019-08-25] VITALS: BP 114/60
[2019-08-25 04:17] LABS: ABSOLUTE BASOPHILS 0.1 thou/uL (0.0-0.2); ABSOLUTE EOSINOPHILS 0.1 thou/uL (0.0-0.7); ABSOLUTE LYMPHOCYTES 0.9 thou/uL (0.8-5.3); ABSOLUTE MONOCYTES 1.2 thou/uL (0.0-1.2); ABSOLUTE NEUTROPHILS 6.8 thou/uL (1.6-8.1); BASOPHILS 1.2 %; EOSINOPHILS 1.3 %; HEMATOCRIT 27.4 % (37.0-47.0); HEMOGLOBIN 9.2 gm/dL (12.0-15.0); LYMPHOCYTES 9.8 %; MCH 24.5 pg (26.0-34.0); MCHC 33.7 g/dL (28.0-37.0); MCV 72.6 fL (80.0-100.0); MONOCYTES 12.8 %; MPV 7.2 fl. (7.2-11.1); NUCLEATED RBCS 0 /100WBC; PLATELET COUNT* 304 thou/uL (150-400); POLYS 74.9 %; RBC 3.77 mil/uL (4.20-5.00); RDW-CV 19.7 % (10.5-14.5); WBC 9.1 thou/uL (4.0-11.0)
[2019-08-25 04:45] LABS: CALCIUM 7.9 mg/dL (8.5-10.1); CREATININE 0.9 mg/dL (0.6-1.3); POTASSIUM 3.7 mmol/L (3.5-5.1)
--- NOTE | 2019-08-25 07:42 | NUR ---
ASSUMED CARE OF PT AFTER REPORT AT 1930. PT A&OX4. VSS. PHYSICAL ASSESSMENT COMPLETED AND CHARTE. PT ON O2 AT 2L NC. PT ON MEDSURG STATUS. PT COMPLAINED SHE CANT URINATE, BLADDER SCAN SHOWS >900-DR RIVAS MADE AWARE WITH ORDER TO INSERT ROQUE CATHETER. PT COMPLAINED OF RIGHT HIP PAIN-MED GIVEN PER JUN. POTASSIUM 1.5 & MAGNESIUM 3.0-ELECTROLYTE INPLACE. PT ABLE TO SLEEP WELL ON BED. CALL LIGHT WITHIN REACH.
[2019-08-25 07:45] VITALS: BP 132/72
[2019-08-25 08:05] VITALS: BP 132/72
[2019-08-25 12:23] VITALS: BP 137/78
[2019-08-25] MEDS ORDERED: SPIRIVA18 MCG INH (14:21)
--- NOTE | 2019-08-25 15:17 | NUR ---
CM called into Pt's room, no answer. CM called Pt's , left voicemail. CM to attempt to assess tomorrow.
--- NOTE | 2019-08-25 17:29 | EKG ---
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: MS : 1950 Requested By: Beth Stroud Order Number: [id number] MD: Jerman Christensen Measurements Intervals [place] Rate: 106 P: 66 SC: 131 QRS: 57 QRSD: 113 T: 4 QT: 352 QTc: 468 Interpretive Statements Sinus tachycardia Borderline T abnormalities, anterior leads Artifact in lead(s) II,III,aVR,aVL,aVF,V1,V2,V5 Compared to ECG 06/21/2019 10:43:05 T-wave abnormality now present Sinus rhythm no longer present Electronically Signed On 08-25-2019 17:28:10 CDT by Jerman Christensen [email or web address] <ELECTRONICALLY SIGNED> By: Jerman Christensen MD, [facility] 08/25/19 1728 1513 1513 Jerman Christensen MD, [facility] /EPI
--- NOTE | 2019-08-25 17:31 | EKG ---
[place] [address] ELECTROCARDIOGRAM REPORT Name: ZEYNEP CHRAJNI CABEZAS Room: [address] ADM IN M.R.#: [id number] Admission: 08/24/19 Attend Phys: Jagdeep Bailey, Discharge: Date of : 50 Date of Service: 08/25/19 0844 Report #: [id number] THIS REPORT FOR: //name// [facility] Test Date: 2019-08-25 Test Time: 08:44:48 Pat Name: DEMETRIS CH Department: Room: [address] Gender: F Dehorner: : 1950 Requested By: Jagdeep Bailey Order Number: [id number] MD: Jerman Christensen Measurements Intervals [place] Rate: 96 P: 73 NM: 146 QRS: 62 QRSD: 79 T: 65 QT: 368 QTc: 465 Interpretive Statements Sinus rhythm Compared to ECG 06/21/2019 10:43:05 No significant changes Electronically Signed On 08-25-2019 17:29:45 CDT by Jerman Christensen [email or web address] <ELECTRONICALLY SIGNED> By: Jerman Christensen MD, FACC 08/25/19 1729 0844 0844 Jerman Christensen MD, [facility] /EPI
[2019-08-25 18:30] VITALS: BP 103/67
[2019-08-25 20:00] VITALS: BP 117/75
[2019-08-26 00:11] VITALS: BP 117/73
[2019-08-26 04:27] LABS: HEMATOCRIT 24.9 % (37.0-47.0); HEMOGLOBIN 8.2 gm/dL (12.0-15.0)
[2019-08-26 08:00] VITALS: BP 152/91
--- NOTE | 2019-08-26 11:17 | NUR ---
PT UP TO CHAIR AND RT INSTRUCT ON INCENTIVE SPIROMETER USE.
--- NOTE | 2019-08-26 12:12 | NUR ---
CM spoke with Pt's via phone. Pt is A&O. Normally independent. Pt does not use any DME. No hx of HH or SNF. CM updated that Pt will probably need skilled vs rehab at dc, in agreement. Therapies to see. Rehab consult placed. Following.
[2019-08-26 16:02] VITALS: BP 108/63
--- NOTE | 2019-08-26 18:56 | NUR ---
PT UP TO CHAIR WITH PT/OT AND TOOK PO IN WELL. MEDICATE FOR PAIN WITH ORAL MEDS. WILL CONTINUE TO ASSESS.
[2019-08-26 20:17] VITALS: BP 130/86
--- NOTE | 2019-08-26 22:22 | OP ---
[address] [address] OPERATIVE REPORT Name: DEMETRIS CH JOCELYNN Room: [address] IN M.R.#: [id number] Admission: 08/24/19 Attend Phys: Jagdeep Bailey MD Discharge: Date of : 50 Report #: [id number] THIS REPORT FOR: //name// cc: Josef Burns Steve T. DO ~ THIS REPORT FOR: //name// CC: Jagdeep Burns DATE OF SERVICE: 08/25/2019 PREOPERATIVE DIAGNOSIS: Right comminuted intertrochanteric femur fracture. POSTOPERATIVE DIAGNOSIS: Right comminuted intertrochanteric femur fracture. PROCEDURE: Closed reduction and cephalomedullary nailing of right comminuted intertrochanteric femur fracture. SURGEON: Joby Vasquez DO GLOBAL CEO: 1. Tyrone Ward DO 2. Daniel Hobson DO ANESTHESIA: General. ANTIBIOTICS: Ancef IV. FLUIDS: 600 mL lactated Ringer's. URINARY OUTPUT: 100 mL. ESTIMATED BLOOD LOSS: 200 mL. SPECIMENS: Femoral reamings sent to pathology and confirmed on specimen timeout. COMPLICATIONS: None. DRAINS: None. CONDITION: The patient is stable to PACU. IMPLANTS: Mathews gamma nail 11 x 400 mm x 125 degree, 85 mm lag screw, 52.5 mm distal interlock screw. [address] [place] [address] OPERATIVE REPORT Name: DEMETRIS CH JOCELYNN Room: [address] ADM IN M.R.#: [id number] Admission: 08/24/19 Attend Phys: Jagdeep Bailey MD Discharge: Date of : 50 Report #: [id number] INDICATIONS FOR PROCEDURE: The patient admitted to [facility] with intertrochanteric femur fracture. My partner, Dr. Boyd originally consulted, he asked that I take over care due to my fracture training. I went over with the patient and her imaging, exam findings, diagnosis, treatment options, reasoning for surgery and risks and complications. Please see my notes for full details. Consent was obtained. DESCRIPTION OF PROCEDURE: I marked the right lower extremity in the presence of operative team members; everyone agreed this was correct. She was taken to the operative suite where a briefing was performed indicating correct patient, procedure, site, antibiotics and that implants were present and sterile; all team members agreed. General anesthetic administered, transferred over to the operative table in supine position, well-padded and secured. Right lower extremity was positioned appropriately with the aid of the [place] fracture table. Multiplanar C-arm imaging showed overall excellent reduction. The right lower extremity was sterilely prepped and draped in standard fashion. Timeout was performed indicating correct patient, procedure, site, antibiotics and that implants were present and sterile; all team members agreed. Marked out incisions, started proximal to the greater trochanter through skin and careful soft tissue dissection down, inserted the guidewire and advanced in appropriate position on multiplanar imaging, reamed over that guidewire, ball-tipped guidewire passed, took images distally and then proximally to confirm length of 400 mm would be appropriate. Final gamma 11 x 400 mm x 125 degree nail was thrown on to the back table. Over the ball-tipped guidewire, we reamed appropriately for the nail passage passing over the ball-tipped guidewire uneventfully. No fracture or mal-reduction occurred nor any perforation of the cortex. Removed the ball-tipped guidewire, made an incision for a double sleeve that was placed down to bone. A guidewire placed for lag screw placement in appropriate position on multiplanar C-arm imaging, measured, drilled and then placed an 85 mm lag screw, engaged the setscrew fully and confirmed it by no longer being able to turn the lag screwdriver handle. We then removed the guide and the external aiming system. Saved final C-arm images proximally showing excellent reduction and placement of hardware. We then turned our attention distally and performed perfect stebbins technique. Incision made, drilled, measured and placed appropriately-sized distal interlocking screw. Multiplanar C-arm imaging confirmed appropriate position. Debriefing performed confirming procedure, blood loss, that specimen was sent to pathology and that all counts were correct and final; all team members agreed. Irrigated all incision sites with normal saline, closed deep layers with 0 Vicryl, subcu with 2-0 Monocryl and skin with luis eduardo. Again, all counts were correct and final. Sterile silver impregnated dressings were applied. She was extubated and taken to PACU stable. POSTOPERATIVE COURSE AND EVALUATION: I spoke with her per her wishes. Addressed questions he had to stated satisfaction. He is very thankful for my [address] [address] OPERATIVE REPORT Name: DEMETRIS CH Room: [address] IN M.R.#: [id number] Admission: 08/24/19 Attend Phys: Jagdeep Bailey MD Discharge: Date of : 50 Report #: [id number] time and efforts. She was resting in PACU with stable vital signs, pain controlled, neurovascularly intact. Compartments soft and compressible. Negative Homans sign. PACU films showed stable internal fixation and fracture reduction. DVT prophylaxis will be both pharmacological and mechanical until instructed otherwise. PT, OT, weightbear as tolerated. I encouraged medical nursing staff. The patient and family to call anytime with questions or concerns. <ELECTRONICALLY SIGNED> By: Joby Vasquez DO 08/26/19 2222 2301 [id number] Vasquez DO /nt
[2019-08-27 00:15] VITALS: BP 112/67
[2019-08-27 04:49] LABS: RBC 2.65 mil/uL (4.20-5.00)
[2019-08-27 04:50] LABS: MCH 24.6 pg (26.0-34.0); MCHC 33.2 g/dL (28.0-37.0); MCV 74.1 fL (80.0-100.0); MPV 7.4 fl. (7.2-11.1); NUCLEATED RBCS 0 /100WBC; PLATELET COUNT* 305 thou/uL (150-400); RDW-CV 20.9 % (10.5-14.5); WBC 9.6 thou/uL (4.0-11.0)
[2019-08-27 04:51] LABS: CALCIUM 8.2 mg/dL (8.5-10.1); CREATININE 0.8 mg/dL (0.6-1.3); POTASSIUM 3.7 mmol/L (3.5-5.1)
[2019-08-27 06:00] LABS: HEMATOCRIT 19.7 % (37.0-47.0); HEMOGLOBIN 6.5 gm/dL (12.0-15.0)
[2019-08-27 06:59] LABS: ABSOLUTE BASOPHILS 0.2 thou/uL (0.0-0.2); ABSOLUTE EOSINOPHILS 0.3 thou/uL (0.0-0.7); ABSOLUTE LYMPHOCYTES 2.1 thou/uL (0.8-5.3); PLATELET ESTIMATE ADEQUATE
[2019-08-27 07:00] LABS: HEMATOCRIT 19.9 % (37.0-47.0); HEMOGLOBIN 6.7 gm/dL (12.0-15.0)
[2019-08-27 07:00] LABS: HYPOCHROMASIA 2+; MICROCYTES 2+; SCHISTOCYTES 1+; TARGET CELLS 1+
[2019-08-27 07:01] LABS: ANISOCYTOSIS 2+; OVALOCYTES 1+
[2019-08-27 08:00] VITALS: BP 119/64
[2019-08-27 08:13] VITALS: BP 113/68; BP 119/78; BP 131/74
--- NOTE | 2019-08-27 08:51 | NUR ---
Acute rehab consult to be placed.
--- NOTE | 2019-08-27 12:14 | NUR ---
ASSUMED CARE OF PATIENT THIS AM AT 0730. PATIENT IS ALERT AND ORIENTED X 4. SHE SAYS PAIN WAS RELIEVED AFTER AM PAIN MEDICATIONS. 1 UNIT PRBCS INFUSED WITHOUT ANY APPARENT REACTION. PATIENT ASSISTED WITH ADLS NEEDED. PT IN TO SEE PATIENT. PATIENT IS UP IN THE CHAIR AT THIS TIME. INSTRUCTED TO TCDB AND PERFORM IS Q 2 HR. NO FALLS OR INJURY. RIGHT HIP DRESSING IS INTACT. PATIENT HAD A LOW GRADE TEMP THIS AM PRIOR TO BLOOD TRANFUSION. TYLENOL GIVEN X 1.
[2019-08-27 12:19] LABS: HEMOGLOBIN 8.5 gm/dL (12.0-15.0)
--- NOTE | 2019-08-27 15:27 | NUR ---
WOUND NURSE: PATIENT SEEN TO ADDRESS STAGE 4 PRESSURE INJURY ON THE RIGHT LATERAL MALLEOLUS. MEASURES 0.9 X 0.8 X 0.3 CM. WOUND EDGES WITH PINK GRANULATION TISSUE. WOUND BASE WITH CREAM COLORED CARTILAGINOUS TISSUE. SCANT SEROUS DRAINGE. THERE IS NO PERIWOUND REDNESS, WARMTH, OR INDURATION. PATIENT ADMITS TO PREVIOUSLY SLEEPING ON RIGHT SIDE AND SUSPECT THIS HAS CONTRIBUTED TO THE WOUND. PATIENT HAS REPAIRED HIP FX AND NO LONGER ABLLE TO SLEEP IN THAT POSITION, CLEANSED WITH NS AND GAUZE. APPLIED SKIN PREP TO THE INTACT PERIWOUND TISSUE. COVERED WITH BORDERED FOAM DRESSING. INSTRUCTED PATIENT ON OFFLOADING AFFECTED AREA. SHE STATES SHE UNDERSTANDS AND IS UNABLE TO LAY ON RIGHT SIDE NOW.
[2019-08-27 16:17] VITALS: BP 118/60
[2019-08-27 19:40] VITALS: BP 150/77
[2019-08-27 23:00] VITALS: BP 136/77
--- NOTE | 2019-08-28 04:35 | NUR ---
ASSUMED CARE OF PT AT 1900. PT IS ALERT AND ORIENTED. VSS. PERRLA. PT GETTING HYDROCODONE FOR PAIN. PT IS SLEEPING QUIETLY IN BED. RESPIRATIONS ARE EVEN AND NONLABORED. WILL CONTINUE TO MONITOR PT.
[2019-08-28 04:56] LABS: HEMATOCRIT 24.7 % (37.0-47.0); HEMOGLOBIN 8.4 gm/dL (12.0-15.0)
[2019-08-28 07:50] VITALS: BP 142/82
[2019-08-28 16:38] VITALS: BP 137/82
--- NOTE | 2019-08-28 16:52 | NUR ---
PATIENT RESTING UP IN CHAIR. PATIENT IS UP WITH MODERATE ASSIST. PATIENT HAS COMPLAINTS OF PAIN TO RIGHT LEG AND ANKLE, TREATED ADEQUATELY WITH MEDICATION AND REPOSITIONING. PATIENT HAS GOOD APPETITE. PATIENT DENIES ANY NEEDS AT THIS TIME. CALL LIGHT WITHIN REACH.
[2019-08-28 20:10] VITALS: BP 120/70
[2019-08-28 23:57] VITALS: BP 123/69
--- NOTE | 2019-08-29 04:55 | NUR ---
PT SLEPT MOST OF SHIFT. ASSESSMENT DOCUMENTED. MEDS GIVEN PER E-MAR. IV PATENT. PAIN MEDS GIVEN PER E-MAR WITH RELIEF. DRESSING CDI. FALL PRECAUTIONS IN PLACE. WILL CONTINUE WITH PLAN OF CARE.
[2019-08-29 07:50] VITALS: BP 146/92
[2019-08-29 09:26] LABS: CALCIUM 8.4 mg/dL (8.5-10.1); CREATININE 0.8 mg/dL (0.6-1.3); POTASSIUM 3.7 mmol/L (3.5-5.1)
[2019-08-29 16:55] VITALS: BP 117/71
--- NOTE | 2019-08-29 17:54 | NUR ---
PATIENT RESTING IN BED. PATIENT IS UP WITH ASSIST OF ONE WITH WALKER. PATIENT HAS COMPLAINTS OF PAIN TO RIGHT LEG, TREATED ADEQUATELY WITH MEDICATION. PATIENT HAS GOOD APPETITE. PATIENT DENIES ANY NEEDS AT THIS TIME. CALL LIGHT WITHIN REACH.
[2019-08-29 20:50] VITALS: BP 141/82
--- NOTE | 2019-08-30 06:16 | NUR ---
ASSUMED CARE OF PT 08/29/19 AT APPROX 1930. PT A&OX4, ON ROOM AIR, VSS. PAIN MEDS REQUESTED AND GIVEN ORDERED. ASSESSMENTS AND HOURLY ROUNDINGS COMPLETE. WILL CONTINUE TO MONITOR.
[2019-08-30] MEDS ORDERED: CELEBREX 200 M200 M1 PO (08:01)
[2019-08-30] MEDS ORDERED: ELIQUIS5 MG PO (08:01)
[2019-08-30 09:15] VITALS: BP 153/74
[2019-08-30 11:23] LABS: HEMATOCRIT 25.4 % (37.0-47.0); HEMOGLOBIN 8.4 gm/dL (12.0-15.0)
--- NOTE | 2019-08-30 13:08 | PATH ---
[address] [address] PATHOLOGY RPT PROCEDURE Name: DIMAZHANNA Room: [address] IN .R.#: [id number] Admission: 08/24/19 Date of : 50 Discharge: Report #: [id number] Path Case #: [id number] [facility] Accession Number: [id number] . 01 Material submitted: . femur - RIGHT FEMORAL REAMINGS. Modifiers: right . 01 Clinical history: . Fractured right hip Patient has a history of breast cancer and has a small open wound on her right lateral foot . 02 Diagnosis: Right femoral reamings: - Fragments of benign and viable cancellous bone, skeletal muscle and marrow elements. See comment. (TYE:joaquín; 08/30/2019) [facility] 08/30/2019 1251 Local . 02 Comment: Properly controlled keratin CRISTHIAN immunohistochemical stain performed on A1 is negative. (TYE:joaquín; 08/30/2019) . 02 Electronically signed: . Jovanny Bedoya MD, Pathologist NPI- [id number] . 01 Gross description: . The specimen is received in formalin, labeled "Zhanna Ch, right femoral reamings" and consists of lyles-brown bone/tissue fragments measuring 3.2 x 1.6 x 0.3 cm in aggregate which is entirely submitted in A1 following decalcification. (JMF; 08/26/2019) JFQ/JFQ 08/26/2019 1536 Local . 02 Pathologist provided ICD-10: S72.91XA, Z85.3 . 02 CPT . 953781, K51478, 100246 Specimen Comment: A courtesy copy of this report has been sent to [phone] Specimen Comment: [id number] Specimen Comment: Report sent to / DR RIVAS Performed at: [address], [place] [id number] [place] [address] PATHOLOGY RPT PROCEDURE Name: ZHANNA CH HENDERSON Room: [address] IN M.R.#: [id number] Admission: 08/24/19 Date of : 50 Discharge: Report #: [id number] Path Case #: [id number] MD Nawaf Chavez MD Phone: [phone] Performed at: 02 [facility] [address] [place], [place], [place] [id number] MD Jovanny Bedoya MD Phone: [phone]
[2019-08-30 16:00] VITALS: BP 136/57
[2019-08-30 17:22] VITALS: BP 136/57
--- NOTE | 2019-08-30 18:40 | NUR ---
PATIENT ALERT AND ORIENTED THRU SHIFT. PLEASANT AND CONVERSANT. IV SITE NOTED WNL. PATIENT COOPERATIVE W/ ASSESS AND CARES. TRANSFERS AND AMBULATION W/ FWW AND GAIT BELT, SBA. SEE MAR. UP TO BSC, VOIDING AND BM W/O DIFF. HRLY ROUNDS DONE. DISCHARGED TO INPT [facility] PER BED. REPORT GIVEN TO PUTTY AND CAULKING SUPERVISOR. NO ACUTE DISTRESS NOTED.~TJRN
--- NOTE | 2019-08-30 18:55 | NUR ---
ATTEMPTED TO CALL PTS MULTIPLE TIMES WHILE PT.STILL ON ORTH/SURG UNIT, TO LET HIM KNOW SHE WOULD BE MOVING TO REHAB. SIGNAL KEPT RINGING BUSY.
== END 2019-08-30 18:40 | DRG 480 ==
LOC: M.ERS 13:33 → M.TBA-ER 15:07 → M.2W 15:07 → M.ORTHSURG 08-29 17:16
PROVIDERS: Family Medicine; Internal Medicine; Orthopaedic Surgery; Personal Emergency Response Attendant; ADMIT Internal Medicine
PROC: 0QS606Z Reposition Right Upper Femur with Intramedullary Internal Fixation Device, Open Approach (ICD-10-PCS; 2019-08-25)
PROC: 30233N1 Transfusion of Nonautologous Red Blood Cells into Peripheral Vein, Percutaneous Approach (ICD-10-PCS; principal; 2019-08-27)
DX: M80.051A Age-related osteoporosis with current pathological fracture, right femur, initial encounter for fracture (principal); E43 Unspecified severe protein-calorie malnutrition; E87.1 Hypo-osmolality and hyponatremia; D62 Acute posthemorrhagic anemia; I10 Essential (primary) hypertension; F32.9 Major depressive disorder, single episode, unspecified; E78.00 Pure hypercholesterolemia, unspecified; G62.9 Polyneuropathy, unspecified; E87.6 Hypokalemia; D64.9 Anemia, unspecified; J43.9 Emphysema, unspecified; R09.02 Hypoxemia; F17.210 Nicotine dependence, cigarettes, uncomplicated; Z90.710 Acquired absence of both cervix and uterus; Z85.3 Personal history of malignant neoplasm of breast; Z92.21 Personal history of antineoplastic chemotherapy; Z88.8 Allergy status to other drugs, medicaments and biological substances; Z79.899 Other long term (current) drug therapy; Z68.23 Body mass index [BMI] 23.0-23.9, adult; Z74.01 Bed confinement status; R33.9 Retention of urine, unspecified

== ENCOUNTER 2019-08-30 13:59 | Inpatient (IN) | payer MEDICARE, OTHER ==
[~2019-08-30] VITALS: Ht 162.6 cm; Wt 59.3 kg
[~2019-08-30 13:59] MED LIST changes: +CELEBREX 200 M200 M1 PO; +ELIQUIS5 MG PO; +SPIRIVA18 MCG INH
[2019-08-30 20:00] VITALS: BP 117/68
--- NOTE | 2019-08-31 05:15 | NUR ---
PT ARRIVED ONTO UNIT AT APPROX 1900. ASSUMED CARES AT 1920. ALERT AND ORIENTED. PLEASANT. RIGHT HIP FX WITH ORIF. WBAT RLE. PAIN MEDS GIVEN NEEDED. DRESSING TO RIGHT HIP INTACT. PT REQUESTS AMBIEN AND CLONAZEPAM AT HS. WILL HAVE BRING IN HOME MED CRESTOR. MIN ASSIST WITH GAIT BELT AND WALKER. UP TO BSC. PT HAS OPEN WOUND TO RIGHT ANKLE. DRESSING CHANGED PER WOUND RN ORDERS AND PIC TAKEN. ADMISSION ASSESSMENT COMPLETED AND PT ORIENTED TO REHAB. PT WANTED TO SLEEP AND PREFFERED NOT TO BE AWAKEN. SLEPT SOME. CALL LIGHT IN REACH AND BED ALARM ON.
[2019-08-31 05:43] LABS: HEMOGLOBIN 8.4 gm/dL (12.0-15.0); MCH 25.5 pg (26.0-34.0); MCHC 33.6 g/dL (28.0-37.0); MPV 6.6 fl. (7.2-11.1); RBC 3.29 mil/uL (4.20-5.00); RDW-CV 21.5 % (10.5-14.5)
[2019-08-31 05:51] LABS: CALCIUM 8.3 mg/dL (8.5-10.1); POTASSIUM 3.6 mmol/L (3.5-5.1)
[2019-08-31 07:30] VITALS: BP 140/79
--- NOTE | 2019-08-31 18:01 | NUR ---
ASSUMED CARE AT 730 ALERT ORIENTED PLEASANT AND COOPERATIVE. HX OF RT. HIP ORIF EDEMA PRESENT RT. THIGH KNEE AREA DRESSING C/D/I. US DONE RT. HIP NEGATIVE THIS AFTERNOON. PARTICIPATING IN THERAPIES MEDICATED X 3 FOR RT. HIP PAIN WITH PARTIAL RELIEF STATED. SITTING UP IN RECLINER AT BEDSIDE. HAS LOOSE COUGH. HOURLY ROUNDING COMPLETED. TRANSFERS WITH SBA G BELT WALKER WBAT RLE.
[2019-08-31 19:00] VITALS: BP 125/66
--- NOTE | 2019-09-01 06:33 | NUR ---
ASSUMED CARES AT 1920. ALERT AND ORIENTED. PLEASANT. WBAT RLE. DOES HAVE OCCASIONAL COUGH. MIN ASSIST WITH GAIT BELT AND WALKER. UP TO BSC. DRESSING TO RIGHT HIP AND ANKLE INTACT. PT REQUESTS 2 TABS OF AMBIEN AND CLONAZEPAM AT HS. TYLENOL GIVEN FOR RIGHT HIP PAIN. SLEPT OFF AND ON. CALL LIGHT IN REACH. BED ALARM ON.
[2019-09-01 08:32] VITALS: BP 160/92
--- NOTE | 2019-09-01 16:11 | NUR ---
PT REMAINED ALERT AND ORIENTED. PT C/O PAIN, MEDS GIVEN ORDERED. PT REQUESTED FREQUENT TRIPS TO COMMODE. PT HAD BM TODAY. PT CONTINENT OF BLADDER AND BOWEL DURING SHIFT. FALL RISK PRECAUTIONS IN PLACE. HOURLY ROUNDING COMPLETED. WILL CONTINUE TO MONITOR.
--- NOTE | 2019-09-01 17:23 | NUR ---
Initial assessment for inpt rehab unit: Pt lives at home with and children are supportive. 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 Pt has hx of Breast cancer and back pain issues. Pt did not use any DME but used RW in community (received August of 2018). No history of HH or SNF. Pt has used supplemental oxygen with [employer] in the past but is now on room air. Pt previously independent with ADLs and assists with IADLs. Team conference held today. SW called pt to review team conference summary and plan to reteam and left a message to return call with any questions or concerns. SW to continue to follow to assist with safe dc planning.
[2019-09-01 20:26] VITALS: BP 145/80
--- NOTE | 2019-09-02 01:26 | NUR ---
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
--- NOTE | 2019-09-02 05:17 | NUR ---
SLEPT LATE @ 0000-09/01-.REFUSED HS SNACK.USED BSC X2 FOR VOIDING X2 & BM X2.PIVOT TRANSFER W/ 1 ASSIST.
[2019-09-02 08:00] VITALS: BP 142/86
--- NOTE | 2019-09-02 15:34 | NUR ---
WOUND NURSE: REMINDED THAT THIS PATIENT HAS A MALLEOLUS WOUND. PATIENT HAD CONSULT IN FOR DR. Aletha SAUNDERS, BUT HAS NOT BEEN SEEN AFTER ACUTE CARE D/C AND ADMIT TO REHAB. I TALKED TO DR. SANDHU AND HE APPROVED NEW PODIATRY CONSULT. I CONTACTED DR. SAUNDERS AND HE PLANS ON SEEING PATIENT LATER TODAY.
--- NOTE | 2019-09-02 18:56 | NUR ---
PATIENT A&OX4. VSS. LUNG SOUNDS CLEAR. CHANGED DRESSING TO WOUND ON R ANKLE. CALL TO DR. SIEGEL FOR WOUND CONSULT. PATIENT IN CHAIR. CALL LIGHT IN REACH.
[2019-09-02 19:48] VITALS: BP 123/62
--- NOTE | 2019-09-02 20:45 | NUR ---
RESTING QUIETLY IN BED AND WATCHING TV. PAIN MEDICATION GIVEN FOR COMPLAINT OF RIGHT HIP PAIN RATED "5". CALL LIGHT WITHIN REACH, RIGHT HIP DRESSING DRY/INTACT,
--- NOTE | 2019-09-03 05:53 | NUR ---
UP X TWO DURING THE NIGHT TO THE BEDSIDE COMMODE TO VOID. NO FURTHER COMPLAINT OF PAIN. HOURLY ROUNDING IN PROGRESS.
[2019-09-03 09:30] VITALS: BP 156/80
--- NOTE | 2019-09-03 18:58 | NUR ---
ALERT AND ORIENTED X4. UP WITH 1 ASSIST, GAIT BELT AND WALKER. FOOT DR HERE TODAY AND CHANGED WOUND DRESSING ON RIGHT ANKLE. RIGHT HIP DRESSING DRY AND INTACT. C/O RIGHT SIDE/RIGHT FLANK PAIN. DR NOTIFIED. MYLANTA GIVEN AND PATIENT STATED IT WAS HELPFUL. REMAINS WEIGHTBEARING TOLERATED TO RIGHT LEG. USED PO PAIN MEDICATION TO HELP WITH PAIN. USES CALL LIGHT WHEN NEEDING ASSIST. FALL PRECAUTIONS IN PLACE.
[2019-09-03 19:26] LABS: URINE BILIRUBIN NEGATIVE (Negative); URINE BLOOD NEGATIVE (Negative); URINE CLARITY SL CLOUDY; URINE COLOR YELLOW; URINE GLUCOSE-RANDOM NEGATIVE (Negative); URINE KETONES NEGATIVE (Negative); URINE LEUKOCYTES-REFLEX 1+ (Negative); URINE PROTEIN TRACE (Negative); URINE UROBILINOGEN 0.2 E.U./dl (0.2-1.0)
[2019-09-03 19:27] LABS: URINE NITRITE-REFLEX POSITIVE (Negative)
[2019-09-03 19:32] LABS: SQUAMOUS 0-3 Few /LPF (0-3)
[2019-09-03 19:33] LABS: BACTERIA-REFLEX >30 Many /HPF (None Seen); CRYSTALS None Seen /LPF (None Seen); HYALINE CASTS 0-3 Few /LPF (None Seen); URINE RBC 0-2 Rare /HPF (0-2); WBC CLUMPS Few (None Seen)
[2019-09-03 20:00] VITALS: BP 138/74
--- NOTE | 2019-09-04 01:31 | NUR ---
ASSUMED CARE @ 1933-09/02-FRIDAY.SITS IN RECLINER ON PHONE @ THIS TIME.CHAIR ALARM ON ALREADY @ 1933.HOB UP IN BED.BED ALARM PUT ON @ 2099.WANTS SIDERAILS X4 UP,ALL LIGHTS OFF & DOOR CLOSED @ NIGHT.WBAT RIGHT LESEE PAIN Management @ 2099.PIVOT TRANSFER FROM RECLINER TO BSC & TO BED W/ 1 PERSON ASSIST.WANTS PRN AMBIEN 10 MG GIVEN W/ PAIN MED & GIVEN @ 2099.ON HOURLY ROUNDS.AUTO SERVICE ADVISOR DOING ODD HOUR ROUNDS.
--- NOTE | 2019-09-04 05:13 | NUR ---
SLEEPING SINCE 2200 & SLEPT GOOD ALL NIGHT.REFUSED HS SNACK.BSC X2 W/ ASSIST DURING NIGHT.
[2019-09-04 08:27] VITALS: BP 135/77
--- NOTE | 2019-09-04 17:19 | NUR ---
ALERT AND ORIENTED X4. UP WITH 1 ASSIST, GAIT BELT AND WALKER. DRESSING DRY AND INTACT OVER RIGHT HIP INCISION. DRESSING DRY AND INTACT OVER RIGHT ANKLE. USING PAIN PATCH AND PO PAIN MEDICATION TO HELP WITH PAIN. STARTED ON ANTIBIODIC FOR POSSIBLE UTI AWAITING CULTURE. CONTINENT OF BOWEL AND BLADDER. USES CALL LIGHT WHEN NEEDING ASSIST. FALL PRECAUTIONS IN PLACE.
[2019-09-04 20:00] VITALS: BP 123/65
--- NOTE | 2019-09-05 05:17 | NUR ---
ASSUMED CARES AT 1920. ALERT AND ORIENTED PLEASANT. WBAT RLE. PAIN MED GIVEN FOR RIGHT HIP PAIN. MIN ASSIST WITH GAIT BELT AND WALKER. UP TO BSC. RIGHT HIP AND ANKLE DRSG INTACT. SLEPT WELL. CALL LIGHT IN REACH AND BED ALARM ON .
[2019-09-05 08:26] VITALS: BP 153/76
--- NOTE | 2019-09-05 18:15 | NUR ---
ALERT AND ORIENTED X4. UP WITH 1 ASSIST, GAIT BELT AND WALKER. USES PO PAIN MEDICATION AND PAIN PATCH TO HELP WITH PAIN. DRESSING CHANGED TO RIGHT OUTTER ANKLE. DRESSING REMAINS INTACT TO RIGHT HIP. REMAINS WEIGHTBEARING TOLERATED TO RIGHT LOWER LEG. CONTINUES ON PO ANTIBIODIC WITH NO ADVERESE REACTIONS OR SIDE EFFECTS. USES CALL LIGHT WITHIN REACH. FALL PRECAUTIONS IN PLACE, BED ALARM AND CHAIR ALARM.
[2019-09-05 20:00] VITALS: BP 108/66
--- NOTE | 2019-09-06 05:12 | NUR ---
ASSUMED CARES AT 1920. ALERT AND ORIENTED. PLEASANT. C/O PAIN TO RIGHT HIP/LEG/FOOT. PAIN MEDS GIVEN NEEDED. MIN ASSIST WITH GAIT BELT AND WALKER. UP TO BSC. DRESSINGS TO RIGHT HIP AND ANKLE ARE INTACT. SLEPT WELL. CALL LIGHT IN REACH AND BED ALARM ON.
--- NOTE | 2019-09-06 18:59 | NUR ---
ALERT AND ORIENTED X4. UP WITH 1 ASSIST, GAIT BELT AND WALKER. USING PO AND PATCH PAIN MEDICATION TO HELP WITH PAIN. DRESSING REMAINS DRY AND INTACT OVER RIGHT HIP. DRY DRESSING OVER RIGHT ANKLE. CONTINENT OF BOWEL AND BLADDER. CALL LIGHT WITHIN REACH. FALL PRECAUTIONS IN PLACE.
[2019-09-06 19:15] VITALS: BP 145/77
--- NOTE | 2019-09-07 05:15 | NUR ---
ASSUMED CARES AT 1920. ALERT AND ORIENTED. PLEASANT. C/O HEARTBURN. MYLANTA GIVEN. C/O PAIN TO RIGHT LEG. PAIN MEDS GIVEN. DRSG TO RIGHT HIP AND ANKLE INTACT. MIN ASSIST WITH GAIT BELT AND WALKER. UP TO BSC. SLEPT WELL. CALL LIGHT IN REACH AND BED ALARM ON
[2019-09-07 08:14] VITALS: BP 125/70
--- NOTE | 2019-09-07 16:08 | NUR ---
SW spoke with pt in preparation for team conference tomorrow. Pt wondering about DME needs at dc, possibly wc as he said that pt said she was having difficulty getting out of the bed with just RW. Pt said that pt son will be installing railings and pt does have RW at home already. Pt mentioned pt had already discussed about possible extra in home care and open to HH services at dc. SW to continue to follow to assist with safe dc planning.
--- NOTE | 2019-09-07 16:33 | NUR ---
PATIENT UP TO CHAIR THIS SHIFT. UP WITH SBA AND USE OF WALKER AND GAIT BELT. BM NOTED THIS SHIFT. PRN MYLANTA GIVEN FOR ABD PAIN. FENTANYL PATCH CHANGED AND PLACED TO LEFT SIDE OF ABD ORDERED. PRN EX STRENGTH TYLENOL GIVEN FOR RIGHT LEG PAIN. PER DR. BEAL, PATIENT TO HAVE AGUSTIN REMOVED TOMORROW. DRESSING REMAINS INTACT TO RIGHT HIP. ABX CHANGED FOR URINE CULTURE TO CIPRO AND GIVEN ORDERED. PATIENT SHOWERED TODAY WITH OT ASSISTANCE.
[2019-09-07 19:15] VITALS: BP 166/44
[2019-09-08 08:45] VITALS: BP 144/82
--- NOTE | 2019-09-08 17:19 | NUR ---
SW called and spoke with pt to review team conference summary and plan for pt to dc home with on Friday and HH services to follow. SW to continue to follow to finalize safe dc plans for Tuesday 09/12.
--- NOTE | 2019-09-08 18:39 | NUR ---
ASSESSMENT COMPLETED DOCUMENTED THIS MORNING. TOLERATING THERAPY WELL, CONTINUES TO PROGRESS WELL WITH THERAPY. AGUSTIN REMOVED ON RIGHT THIGH AND SUPERIOR LATERAL KNEE, STERI STRIPS APPLIED AND NO S/S OF INFECTION NOTED. PATIENT TOLERATED WELL.
[2019-09-08 19:00] VITALS: BP 154/85
--- NOTE | 2019-09-09 01:21 | NUR ---
ASSUMED CARE @ 1922-.SITS IN RECLINER ON PHONE @ THIS TIME.CHAIR ALARM ALREAdy on @ 1922.HOB UP.SIDERAILS X2 UP.DOOR CLOSED @ NIGHT.WBAT RIGHT LE. BED ALARM PUT ON @ 2129.SEE PAIN MANAGEMENT @ 2127.PRN AMBIEN 5 MG ORAL GIVEN @ 2127 & 2129.ON HOURLY ROUNDS.INSURANCE AGENCY OWNER DOING ODD HOUR ROUNDS.
--- NOTE | 2019-09-09 05:11 | NUR ---
SLEPT LATE @ 0000-09/08-.SLEEPING GOOD ALL NIGHT.USED BSC X1.REFUSED HS SNACK.
[2019-09-09 08:00] VITALS: BP 154/77
--- NOTE | 2019-09-09 18:08 | NUR ---
ASSESSMENT COMPLETED DOCUMENTED THIS MORNING. PATIENT EASILY DISTRACTED, AND ANXIOUS. AT TIMES LOSES FOCUS OF TASK AT HAND. PATIENT STATED THAT "MY FENTANYL PATCH GOT WET AND CAME OFF IN THE SHOWER TODAY." PATIENT NOT DUE FOR NEXT PATCH UNTIL TOMORROW MORNING AT 0900, AGREED TO TAKE HYDROCODONE 10/325 Q4H PRN UNTIL THEN AND HAVE NEW PATCH APPLIED.
[2019-09-09 19:40] VITALS: BP 136/72
--- NOTE | 2019-09-10 06:23 | NUR ---
ASSUMED CARES AT 1920. ALERT AND ORIENTED. PLEASANT. C/O BACK AND KNEE PAIN. PAIN MEDS GIVEN NEEDED. MIN ASSIST WITH GAIT BELT AND WALKER. UP TO BSC. 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 RIGHT ANKLE DRSG INTACT. SLEPT MOST OF THE NIGHT. CALL LIGHT IN REACH AND BED ALARM ON
[2019-09-10 09:12] VITALS: BP 135/83
--- NOTE | 2019-09-10 19:22 | NUR ---
PATIENT A&OX4. VSS. LSCTA. BOWEL SOUNDS ACTIVE. APPLIED FENTANYL PATCH TO LOWER LEFT ABDOMEN. PATIENT IN GOOD SPIRITS, CALM AND COOPERATIVE. PATIENT UP TO BEDSIDE COMMODE WITH WALKER AND GAIT BELT. CALL LIGHT IN REACH.
[2019-09-10 20:34] VITALS: BP 143/38
--- NOTE | 2019-09-11 01:56 | NUR ---
ASSUMED CARE @ 1944-09/09-FRIDAY.AWAKE IN BED ON PHONE.WANTS SIDERAILS X2 UP,ALL LIGHTS OFF & DOOR CLOSED @ NIGHT.LE'S UP ON 2 PILLOWS.BED ALARM PUT ON @ 1944.SEE PAIN MANAGEMENT @ 2224.PRN AMBIEN 5 MG EACH GIVEN ORAL @ 2224 & 2225.ON HOURLY ROUNDS.SODDER DOING ODD HOUR ROUNDS.
[2019-09-11 03:40] VITALS: BP 137/71
--- NOTE | 2019-09-11 07:00 | NUR ---
SLEEPING @ 0000-09/10-SAT & SLEEPING GOOD ALL NIGHT.REFUSED HS SNACK.WBAT RIGHT LE FOR TRANSFERS.USED BSC X1.BP @ 2029-143/38.NE-48.BP RE-CHECKED @ 0- -137/71.NE-86.
[2019-09-11 08:36] VITALS: BP 147/80
--- NOTE | 2019-09-11 18:45 | NUR ---
ASSESSMENT COMPLETED DOCUMENTED THIS MORNING. PATIENT HAS BEEN UP IN HER RECLINER AT THE BEDSIDE FOR THE DAY AND TOLERATING IT WELL. ANXIOUS ABOUT GOING HOME ON FRIDAY. NO ISSUES NOTED DURING SHIFT.
[2019-09-11 20:15] VITALS: BP 147/84
--- NOTE | 2019-09-12 01:47 | NUR ---
ASSUMED CARE @ 1921-09/10-SAT.AWAKE IN BED ON PHONE @ THIS TIME.BOTH LE'S UP ON 2 PILLOWS.BED ALARM PUT ON @ 1921.SEE PAIN MANAGEMENT @ 2155.PRN AMBIEN 10 MG ORAL GIVEN ALSO @ 2155.ON HOURLY ROUNDS.CUTTER ALUMINUM SHEET DOING ODD HOUR ROUNDS.
--- NOTE | 2019-09-12 05:08 | NUR ---
SLEEPING @ 0000-09/11-SUN & SLEEPING GOOD ALL NIGHT.WBAT RIGHT LE.USED BSC X1 W/ ASSISTANCE.DOES OWN HYGIENE AFTER VOIDING.REFUSED HS SNACK.
--- NOTE | 2019-09-12 18:08 | NUR ---
ASSESSMENT COMPLETED DOCUMENTED THIS MORNING. NO ISSUES OR CHANGES IN CONDITION NOTED TODAY. HAS BEEN RESTING INTERMITTENTLY BETWEEN HER BED AND RECLINER AT THE BEDSIDE TODAY. NO PAIN MEDS OTHER THAN CELEBREX AT SUPPER GIVEN TODAY. PATIENT EXPRESSING MUCH ANXIETY ABOUT DISCHARGE TOMORROW D/T HER SON HAS RETURNED TO HER HOME AFTER A BREAK UP WITH GIRLFRIEND AND HAS A DRINKING PROBLEM.
[2019-09-12 19:35] VITALS: BP 117/73
--- NOTE | 2019-09-13 01:38 | NUR ---
ASSUMED CARE @ -SUN.SITS IN BSC W/ BELT TENDER ASSISTING.LE'S UP ON 2 PILLOWS WHILE IN BED.BED ALARM PUT ON @ 1944.SEE PAIN MANAGEMENT @ 2209.PRN AMBIEN 5 MG ORAL GIVEN @ 2209.2ND DOSE AMBIEN 5 MG ORAL GIVEN @ 2211.WANTS ONLY SIDERAILS X2 UP,ALL LIGHTS OFF & DOOR CLOSED @ NIGHT.ON HOURLY ROUNDS.BELT TENDER DOING ODD HOUR ROUNDS.
--- NOTE | 2019-09-13 05:23 | NUR ---
SLEEPING SINCE 2254 & SLEPT GOOD ALL NIGHT.USED BSC X2 W/ ASSIST.REFUSED HS SNACK.PHOTO TAKEN RIGHT ANKLE & DRSG CHANGED @ 4798.FOR DISCHARGE TODAY- -09/12-FRIDAY.
[2019-09-13 08:31] VITALS: BP 144/83
[2019-09-13] MEDS ORDERED: DULCOLAX STOOL100 M1 PO (11:00)
[2019-09-13] MEDS ORDERED: ACETAMINOPHEN 500 MG PO (11:10)
[2019-09-13] MEDS ORDERED: MIRALAX119 GM PO (11:12)
[2019-09-13 14:34] VITALS: BP 144/83
[2019-09-13 15:58] VITALS: BP 144/83
--- NOTE | 2019-09-13 16:01 | NUR ---
Pt to dc home with today and HH services to follow. SW called pt to discuss pt preference for HH agency and pt choice for [facility]; SW faxed referral and orders to HH intake. Pt to provide pt ride home. Pt has needed DME at home already.
--- NOTE | 2019-09-13 17:26 | NUR ---
PATIENT VERBALIZED UNDERSTANDING OF DISCHARGE INSTRUCTIONS. PO AND PATCH USED FOR PAIN AND HELPFUL. DRESSING DRY AND INTACT OVER RIGHT ANKLE. STERI STRIP INTACT OVER RIGHT HIP. [facility] CALLED IN TO PATIENT'S PHARMACY. PATIENT D/C VIA W/C. TO FAMILY CAR.
== END 2019-09-13 17:00 | disposition home health service (06) | DRG 542 ==
LOC: M.REH 13:59
PROVIDERS: ADMIT Physical Medicine & Rehabilitation
DX: M80.051A Age-related osteoporosis with current pathological fracture, right femur, initial encounter for fracture (principal); E43 Unspecified severe protein-calorie malnutrition; D62 Acute posthemorrhagic anemia; E87.1 Hypo-osmolality and hyponatremia; N39.0 Urinary tract infection, site not specified; S72.141A Displaced intertrochanteric fracture of right femur, initial encounter for closed fracture; J43.9 Emphysema, unspecified; G62.9 Polyneuropathy, unspecified; R33.9 Retention of urine, unspecified; I10 Essential (primary) hypertension; F32.9 Major depressive disorder, single episode, unspecified; W18.30XA Fall on same level, unspecified, initial encounter; E78.00 Pure hypercholesterolemia, unspecified; M19.90 Unspecified osteoarthritis, unspecified site; Z85.3 Personal history of malignant neoplasm of breast; Z68.23 Body mass index [BMI] 23.0-23.9, adult; Z90.49 Acquired absence of other specified parts of digestive tract; Z88.8 Allergy status to other drugs, medicaments and biological substances; Z90.710 Acquired absence of both cervix and uterus; Z87.891 Personal history of nicotine dependence; Z79.82 Long term (current) use of aspirin; Z68.22 Body mass index [BMI] 22.0-22.9, adult